=== PATIENT | female | born 1970 | race Two or more races ===

== ENCOUNTER 2019-04-13 19:22 | Emergency (ER) | payer MEDICAID ==
[~2019-04-13] VITALS: Ht 170.2 cm; Wt 122.5 kg
--- NOTE | 2019-04-13 19:42 | NUR ---
MD AT BEDSIDE FOR HX AND PHYSICAL PT C/O LEFT, JAW PAIN SINCE YESTERDAY PT NAD, BED AT LOWEST POSITION SIDERAILSX2 UP
[2019-04-13] MEDS ORDERED: ONDANSETRON ODT 4 MG TAB.RAPDIS SL ONE (19:45)
[2019-04-13] MEDS ORDERED: OXYCODONE/APAP 5-325 MG TABLET PO ONE (19:45)
[2019-04-13] MEDS ORDERED: ONDANSETRON ODT 4 MG TAB.RAPDIS ONE (19:54)
[2019-04-13] MEDS ORDERED: OXYCODONE/APAP 5-325 MG TABLET ONE (19:54)
--- NOTE | 2019-04-13 20:10 | NUR ---
PT ABLE TO TOLERATE PO MEDS ORDRD Patient discharged to home in stable conditon. Written and verbal after care instructions given. Patient verbalizes understanding of instructions. PT AMBULATORY ALL BELONGINGS W/ PT
[2019-04-13 20:13] VITALS: BP 160/98
== END 2019-04-13 20:14 | disposition home or self-care (01) ==
LOC: ER 19:26
DX: K11.20 Sialoadenitis, unspecified (principal); R68.84 Jaw pain; F41.9 Anxiety disorder, unspecified; E11.9 Type 2 diabetes mellitus without complications
CPT/HCPCS: A4663; Q0162

== ENCOUNTER 2019-07-12 13:50 | Emergency (ER) | payer MEDICAID ==
[~2019-07-12] VITALS: Ht 170.2 cm; Wt 127.0 kg
[2019-07-12] MEDS: IPRATROPIUM BROMIDE 0.5 MG/2.5 ML NEBU NEB ONE (14:10)
[2019-07-12] MEDS: ALBUTEROL SULFATE 2.5 MG/3 ML NEBU NEB ONE (14:10)
[2019-07-12] MEDS ORDERED: ALBUTEROL SULFATE 2.5 MG/3 ML NEBU ONE (14:11)
[2019-07-12] MEDS ORDERED: IPRATROPIUM BROMIDE 0.5 MG/2.5 ML NEBU ONE (14:11)
--- NOTE | 2019-07-12 14:21 | NUR ---
PATIENT WAS SEEN BY . RT AT BEDSIDE FOR TREATMENT. PATIENT IS COUGHING INTERMITTENTLY...
[2019-07-12] MEDS ORDERED: AMLO10TA7 PO (14:35)
[2019-07-12] MEDS ORDERED: LISI40TA4 PO (14:35)
[2019-07-12] MEDS ORDERED: CYAN-51 PO (14:35)
[2019-07-12] MEDS ORDERED: SIMV-46 PO (14:35)
[2019-07-12] MEDS ORDERED: CALC-16 PO (14:35)
[2019-07-12] MEDS ORDERED: MULT1TAB73 PO (14:35)
[2019-07-12] MEDS ORDERED: MAGN400T8 PO (14:35)
[2019-07-12] MEDS ORDERED: METF-441 PO (14:35)
[2019-07-12] MEDS ORDERED: ACET-54 PO (14:35)
[2019-07-12] MEDS ORDERED: PANT40TA4 PO (14:35)
[2019-07-12] MEDS ORDERED: MAGN400O6 PO (14:35)
[2019-07-12] MEDS ORDERED: TRAZ-182 PO (14:35)
[2019-07-12] MEDS: AZITHROMYCIN 250 MG TABLET PO ONE (14:46)
[2019-07-12] MEDS ORDERED: AZITHROMYCIN 250 MG TABLET ONE (14:47)
--- NOTE | 2019-07-12 14:48 | NUR ---
DC, RX (INCLUDING PRECAUTIONS) AND F/U INSTRUCTIONS GIVEN AND EXPLAINED TO PATIENT WH0 STATES SHE UNDERSTANDS ALL INSTRUCTIONS.
--- NOTE | 2019-07-12 14:48 | NUR ---
patient states she is coughing less now...
== END 2019-07-12 14:48 | disposition home or self-care (01) ==
LOC: ER 13:50
DX: J06.9 Acute upper respiratory infection, unspecified (principal); F41.9 Anxiety disorder, unspecified
CPT/HCPCS: 71045; A4663; J3590; Q0144

== ENCOUNTER 2020-04-27 21:52 | Inpatient (IN) | payer MEDICAID ==
[~2020-04-27] VITALS: Ht 170.2 cm; Wt 123.4 kg
[~2020-04-27 21:52] MED LIST: ACET-54 PO; AMLO10TA7 PO; CALC-16 PO; CYAN-51 PO; LISI40TA4 PO; MAGN400O6 PO; MAGN400T8 PO; METF-441 PO; MULT-594 PO; PANT40TA49 PO; SIMV-46 PO; TRAZ-182 PO
--- NOTE | 2020-04-27 22:14 | NUR ---
Dr. Elizabeth speaking with Cydney Munoz NP.
[2020-04-27] MEDS ORDERED: ATOR40TA PO (22:15)
[2020-04-27] MEDS ORDERED: OLAN5TAB3 PO (22:15)
[2020-04-27] MEDS ORDERED: LISI10TA5 PO (22:15)
[2020-04-27] MEDS ORDERED: LORA-259 PO (22:15)
[2020-04-27] MEDS ORDERED: GABA-532 PO (22:15)
[2020-04-27] MEDS ORDERED: DIPH50CA38 PO (22:15)
[2020-04-27] MEDS ORDERED: ASPI81TA31 PO (22:15)
--- NOTE | 2020-04-27 22:20 | NUR ---
Dr. Elizabeth spoke with Cydney Munoz HAIR ASSISTANT, patient is not a TPA candidate, telestroke not needed due to low severity. MD familiar with patient's case.
--- NOTE | 2020-04-27 22:40 | NUR ---
Called Code Stroke.
--- NOTE | 2020-04-27 22:46 | NUR ---
Pt off to CT at this time. AAOx4 with ABC's intact. Portable monitor and yours truly as access lead.
[2020-04-27 22:48] LABS: BASOPHILS # (AUTO) 0.1 K/uL (0.0-8.0); EOSINOPHILS # (AUTO) 0.3 K/uL (0.0-0.7); HEMATOCRIT 39.7 % (31.2-41.9); HEMOGLOBIN 13.1 g/dL (10.9-14.3); LYMPHOCYTES # (AUTO) 2.7 K/uL (20.0-40.0); LYMPHOCYTES % (AUTO) 24.1 % (20.5-51.5); MEAN CORPUSCULAR HEMOGLOBIN 29.7 uug (24.7-32.8); MEAN CORPUSCULAR HGB CONC 33 g/dL (32.3-35.6); MONOCYTES # (AUTO) 0.8 K/uL (2.0-10.0); MONOCYTES % (AUTO) 7.5 % (0.0-11.0); NEUTROPHILS # (AUTO) 7.3 K/uL (1.8-8.9); NEUTROPHILS % (AUTO) 64.4 % (38.5-71.5); PLATELET COUNT (AUTO) 347 K/uL (179-408); RED BLOOD CELL COUNT(AUTO) 4.41 MIL/uL (3.63-4.92); WHITE BLOOD COUNT (AUTO) 11.3 K/uL (3.8-11.8)
--- NOTE | 2020-04-27 22:54 | NUR ---
Chest x-ray being done in CT at this time.
[2020-04-27 22:57] LABS: CREATININE 0.8 mg/dL (0.6-1.3); POTASSIUM 3.5 mmol/L (3.5-5.1)
[2020-04-27] MEDS ORDERED: Z GUARD REMEDY PASTE 57 GM TUBE TOP PRN (23:00)
[2020-04-27] MEDS ORDERED: MAGNESIUM HYDROXIDE 30 ML LIQUID UDC PO PRN (23:00)
[2020-04-27] MEDS ORDERED: ONDANSETRON 4 MG/2 ML VIAL IV PRN (23:00)
[2020-04-27] MEDS ORDERED: HYDROCODONE/APAP 5-325MG TABLET PO PRN (23:00)
[2020-04-27] MEDS ORDERED: ACETAMINOPHEN 325 MG TABLET PO PRN (23:00)
--- NOTE | 2020-04-27 23:02 | NUR ---
Pt back from imaging at this time. Placed back on monitoring devices. food checkers and cashiers supervisor present.
[2020-04-27 23:03] LABS: BILIRUBIN,DIRECT 0.1 mg/dL (0.0-0.2); BILIRUBIN,TOTAL 0.4 mg/dL (0.2-1.0); TOTAL PROTEIN, SERUM 7.4 g/dL (6.4-8.2)
--- NOTE | 2020-04-28 00:30 | NUR ---
Report given to DIAZ Marcial.
--- NOTE | 2020-04-28 00:45 | NUR ---
ADMITTED PATIENT ON THE TELE FLOOR UNDER THE CARE OF SHANNON BERMEO STABLEHAND. PATIENT ALERT ORIENTED, NO SOB NO CHEST PAIN AT THIS TIME. PATIENT HAS NO APPARENT RESIDUAL FROM HX OF CVA, JUST COMPLAIN OF LITTLE NUMBNESS ON LEFT FACE, LEFT LEG AND ARM, NIHSS IS SCORE WNL. PATIENT TELE MONITOR SINUS RHYTHM ON 80'S, NO COMPLAIN OF PAIN, CONT TO MONITOR.
[2020-04-28 01:23] VITALS: BP 112/78
[2020-04-28 04:49] VITALS: BP 118/85
[2020-04-28 06:07] LABS: MAGNESIUM 2.1 mg/dL (1.8-2.4); PHOSPHOROUS 3.7 mg/dL (2.5-4.9)
[2020-04-28] MEDS ORDERED: PANTOPRAZOLE SODIUM 40 MG TABLET.DR PO SCH (07:00)
[2020-04-28 08:00] VITALS: BP 113/77
[2020-04-28] MEDS ORDERED: METFORMIN HCL 850 MG TABLET PO SCH (08:00)
[2020-04-28] MEDS: TRAZODONE 50 MG TABLET PO SCH ×2 (08:22→12:14)
[2020-04-28] MEDS: OLANZAPINE 5 MG TABLET PO SCH ×2 (08:22→12:14)
[2020-04-28] MEDS ORDERED: CALCIUM CARB/VITAMIN D 500MG-200UNITS TABLET PO SCH (09:00)
[2020-04-28] MEDS ORDERED: ASPIRIN 81 MG TAB.CHEW PO SCH (09:00)
[2020-04-28] MEDS ORDERED: CYANOCOBALAMIN 1,000 MCG TABLET PO SCH (09:00)
[2020-04-28] MEDS ORDERED: MAGNESIUM OXIDE 400 MG TABLET PO SCH (09:00)
[2020-04-28] MEDS ORDERED: LISINOPRIL 20 MG TABLET PO SCH (09:00)
[2020-04-28] MEDS ORDERED: AMLODIPINE 10 MG TABLET PO SCH (09:00)
[2020-04-28] MEDS ORDERED: MULTIVITAMINS,THERAPEUTIC TABLET PO SCH (09:00)
[2020-04-28 11:30] VITALS: BP 94/55
[2020-04-28] MEDS ORDERED: LISI-607 PO (12:16)
--- NOTE | 2020-04-28 13:42 | NUR ---
dc orders received noted and carried out,dc instruction and education given to the pt ,pt said she will follow up with her pcp in one week.dc heplock per md orders,pt left the facility via private car in stable condition
[2020-04-28] MEDS ORDERED: ATORVASTATIN 40 MG TABLET PO SCH (18:00)
== END 2020-04-28 13:40 | disposition home health service (06) | DRG 45 ==
LOC: ER 21:52 → TELE3 04-28 00:35
PROVIDERS: ADMIT Nurse Practitioner Acute Care; ATTEND Nurse Practitioner Acute Care
DX: I63.9 Cerebral infarction, unspecified (principal); G81.94 Hemiplegia, unspecified affecting left nondominant side; E66.01 Morbid (severe) obesity due to excess calories; Z68.41 Body mass index [BMI] 40.0-44.9, adult; E11.9 Type 2 diabetes mellitus without complications; Z79.84 Long term (current) use of oral hypoglycemic drugs; F17.210 Nicotine dependence, cigarettes, uncomplicated; E78.5 Hyperlipidemia, unspecified; I10 Essential (primary) hypertension; Z86.73 Personal history of transient ischemic attack (TIA), and cerebral infarction without residual deficits; R40.2362 Coma scale, best motor response, obeys commands, at arrival to emergency department; R40.2142 Coma scale, eyes open, spontaneous, at arrival to emergency department; R40.2252 Coma scale, best verbal response, oriented, at arrival to emergency department; R29.702 NIHSS score 2; R20.0 Anesthesia of skin; Z79.82 Long term (current) use of aspirin; Z82.3 Family history of stroke
CPT/HCPCS: 36415; 70030-TC; 70450; 71045; 83735; 84100; 85025; 85730; 93005; A4663; G0378

== ENCOUNTER 2020-10-31 10:15 | Emergency (ER) | payer MEDICAID ==
[~2020-10-31] VITALS: Ht 170.2 cm; Wt 131.5 kg
[~2020-10-31 10:15] MED LIST changes: -AMLO10TA7 PO; +ASPI81TA31 PO; +ATOR40TA PO; +DIPH50CA38 PO; +GABA-532 PO; +LISI-782 PO; -LISI40TA4 PO; +LORA-259 PO; -MAGN400O6 PO; +OLAN5TAB3 PO; -SIMV-46 PO
--- NOTE | 2020-10-31 10:40 | NUR ---
at bedside for assessment
[2020-10-31] MEDS ORDERED: ALBUTEROL SULFATE 2.5 MG/3 ML NEBU NEB ONE (11:15)
[2020-10-31] MEDS ORDERED: ALBUTEROL SULFATE 2.5 MG/3 ML NEBU ONE (11:34)
--- NOTE | 2020-10-31 11:46 | NUR ---
breathing treatment in progress
[2020-10-31] MEDS ORDERED: predniSONE 20 MG TABLET PO ONE (12:00)
[2020-10-31] MEDS ORDERED: BENZONATATE 100 MG CAPSULE PO ONE (12:00)
[2020-10-31] MEDS ORDERED: BENZONATATE 100 MG CAPSULE ONE (12:09)
[2020-10-31] MEDS ORDERED: predniSONE 50 MG TABLET ONE (12:09)
[2020-10-31] MEDS ORDERED: predniSONE 20 MG TABLET ONE (12:09)
[2020-10-31] MEDS ORDERED: predniSONE 10 MG TABLET ONE (12:09)
[2020-10-31] MEDS ORDERED: ALBU8HFA4 IH (12:34)
[2020-10-31] MEDS ORDERED: PRED20TA PO (12:34)
[2020-10-31] MEDS ORDERED: BENZ200C53 PO (12:34)
--- NOTE | 2020-10-31 12:40 | NUR ---
Patient discharged to home in stable condition. No shortness of breath noted on discharge, no signs of acute distress noted, Written and verbal after care instructions given. tokm all belongings, note ambulating with steady gait. Patient verbalizes understanding of instructions. Stressed follow up or return to ER for worsening s/s.
[2020-10-31 12:48] VITALS: BP 144/79
== END 2020-10-31 12:40 | disposition home or self-care (01) ==
LOC: ER 10:15
DX: J45.901 Unspecified asthma with (acute) exacerbation (principal); E11.9 Type 2 diabetes mellitus without complications; Z79.84 Long term (current) use of oral hypoglycemic drugs; E78.5 Hyperlipidemia, unspecified; I10 Essential (primary) hypertension; Z86.73 Personal history of transient ischemic attack (TIA), and cerebral infarction without residual deficits; F41.9 Anxiety disorder, unspecified; F17.200 Nicotine dependence, unspecified, uncomplicated
CPT/HCPCS: 71045; 94640; 99283; J7512 ×3; A4663

== ENCOUNTER 2020-11-02 09:03 | Emergency (ER) | payer MEDICAID ==
[~2020-11-02] VITALS: Ht 172.7 cm; Wt 131.5 kg
[~2020-11-02 09:03] MED LIST changes: +ALBU8HFA4 IH; +BENZ200C53 PO; +PRED20TA PO
--- NOTE | 2020-11-02 09:42 | NUR ---
Pt seen in ER on 10/31, also c/o dyspneasince 10/29. Pt denies CP, dizziness, n/v, no distress noted.
[2020-11-02] MEDS ORDERED: ALBUTEROL SULFATE 2.5 MG/3 ML NEBU NEB ONE (09:45)
[2020-11-02] MEDS ORDERED: IPRATROPIUM BROMIDE 0.5 MG/2.5 ML NEBU NEB ONE (09:45)
[2020-11-02] MEDS ORDERED: ALBUTEROL SULFATE 2.5 MG/3 ML NEBU ONE (09:48)
[2020-11-02] MEDS ORDERED: IPRATROPIUM BROMIDE 0.5 MG/2.5 ML NEBU ONE (09:48)
--- NOTE | 2020-11-02 11:15 | NUR ---
1st contact with patient: Patient is for discharge to home by Dr Elizabeth, AOx4, calm & breathing easily, no coughibng heard@this time. Patient discharged to home in stable condition with brisk steady gait. Written and verbal after care instructions given. Patient verbalizes understanding & compliance of instructions. Stressed follow up with her primary doctor and admission specialist or return to ER for worsening s/s.
[2020-11-02 11:18] VITALS: BP 149/96
== END 2020-11-02 11:18 | disposition home or self-care (01) ==
LOC: ER 09:03
DX: J45.901 Unspecified asthma with (acute) exacerbation (principal); R05 Cough; Z86.73 Personal history of transient ischemic attack (TIA), and cerebral infarction without residual deficits; E78.5 Hyperlipidemia, unspecified; Z79.82 Long term (current) use of aspirin; Z79.84 Long term (current) use of oral hypoglycemic drugs; Z79.52 Long term (current) use of systemic steroids; E11.9 Type 2 diabetes mellitus without complications; I10 Essential (primary) hypertension; F41.9 Anxiety disorder, unspecified; Z79.899 Other long term (current) drug therapy
CPT/HCPCS: 71045; 93005; A4663; J3590; J7030

== ENCOUNTER 2020-11-04 19:24 | Emergency (ER) | payer MEDICAID ==
[~2020-11-04] VITALS: Ht 170.2 cm; Wt 132.4 kg
[2020-11-04] MEDS ORDERED: IPRATROPIUM BROMIDE 0.5 MG/2.5 ML NEBU NEB ONE (19:45)
[2020-11-04] MEDS ORDERED: predniSONE 20 MG TABLET PO ONE (19:45)
[2020-11-04] MEDS ORDERED: ALBUTEROL SULFATE 2.5 MG/3 ML NEBU NEB ONE (19:45)
--- NOTE | 2020-11-04 19:47 | NUR ---
Respiratory therapist in room with patient.
[2020-11-04] MEDS ORDERED: predniSONE 20 MG TABLET ONE (19:50)
[2020-11-04] MEDS ORDERED: IPRATROPIUM BROMIDE 0.5 MG/2.5 ML NEBU ONE (19:54)
[2020-11-04] MEDS ORDERED: ALBUTEROL SULFATE 2.5 MG/3 ML NEBU ONE (19:54)
--- NOTE | 2020-11-04 19:55 | NUR ---
field radio technician in room with patient.
--- NOTE | 2020-11-04 20:06 | NUR ---
Heidi uribe in ED - 11/04/20 at 2010 by MARGARET Report given to DIAZ Terry, patient will be taken upstairs soon.
--- NOTE | 2020-11-04 20:17 | NUR ---
received call from [facility] , negative for rapid covid test
[2020-11-04] MEDS ORDERED: AZITHROMYCIN 250 MG TABLET PO ONE (20:45)
[2020-11-04 20:50] VITALS: BP 141/84
--- NOTE | 2020-11-04 20:50 | NUR ---
Patient discharged to home in stable condition. Written and verbal after care instructions given. Patient verbalizes understanding of instructions. Stressed follow up or return to ER for worsening s/s. Patient ambulates with steady gait, V/S stable, received paper Rx, left with all personal belongings.
[2020-11-04] MEDS ORDERED: AZITHROMYCIN 250 MG TABLET ONE (20:51)
== END 2020-11-04 20:50 | disposition home or self-care (01) ==
LOC: ER 19:25
DX: J45.901 Unspecified asthma with (acute) exacerbation (principal); Z20.822 Contact with and (suspected) exposure to COVID-19; F17.210 Nicotine dependence, cigarettes, uncomplicated; I10 Essential (primary) hypertension; E11.9 Type 2 diabetes mellitus without complications; E78.5 Hyperlipidemia, unspecified; Z79.82 Long term (current) use of aspirin; Z79.899 Other long term (current) drug therapy; Z79.84 Long term (current) use of oral hypoglycemic drugs; Z86.73 Personal history of transient ischemic attack (TIA), and cerebral infarction without residual deficits
CPT/HCPCS: 71045; 87426; 94640; 99283; J7512; A4663; J3590; Q0144

== ENCOUNTER 2020-11-30 18:34 | Emergency (ER) | payer MEDICAID ==
[~2020-11-30] VITALS: Ht 177.8 cm; Wt 131.5 kg
[2020-11-30] MEDS ORDERED: QUET25TA PO (18:54)
[2020-11-30] MEDS ORDERED: DIPH-1062 PO (18:54)
[2020-11-30] MEDS ORDERED: CHLO25TA2 PO (18:54)
[2020-11-30] MEDS ORDERED: OMEP20TA5 PO (18:54)
[2020-11-30 19:09] LABS: *BILIRUBIN,URIN NEGATIVE (NEGATIVE); *CLARITY,URINE CLEAR (CLEAR); *COLOR,URINE YELLOW (YELLOW); *KETONES,URINE NEGATIVE (NEGATIVE); *UROBILINOGEN,URINE 0.2 E.U./dl (NORMAL); LEUKOCYTE ESTERASE ,URINE NEGATIVE (NEGATIVE); NITRITE, URINE NEGATIVE (NEGATIVE); PH,URINE 6.5 (5.0-8.0); UGLUCOSE NEGATIVE (NEGATIVE)
[2020-11-30 19:15] LABS: *BLOOD, URINE TRACE LYSED (NEGATIVE)
[2020-11-30] MEDS ORDERED: HYDR-3980 PO (19:50)
== END 2020-11-30 20:02 | disposition home or self-care (01) ==
LOC: ER 18:34
DX: R07.89 Other chest pain (principal); R30.0 Dysuria; E78.5 Hyperlipidemia, unspecified; J45.909 Unspecified asthma, uncomplicated; Z86.73 Personal history of transient ischemic attack (TIA), and cerebral infarction without residual deficits; F17.210 Nicotine dependence, cigarettes, uncomplicated; Z79.82 Long term (current) use of aspirin; Z79.899 Other long term (current) drug therapy; E11.9 Type 2 diabetes mellitus without complications; Z79.84 Long term (current) use of oral hypoglycemic drugs
CPT/HCPCS: 71045; 93005; A4663